=== PATIENT | male | born 1995 | race Two or more races ===

== ENCOUNTER 2025-04-29 02:45 | Emergency (ER) | payer MEDICAID, OTHER ==
[~2025-04-29] VITALS: Ht 175.3 cm; Wt 77.6 kg
[~2025-04-29 02:45] MED LIST: DIPH25CA66 PO; RIS1T PO
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
[2025-04-29] MEDS: ONDANSETRON HCL 4 MG/2 ML VIAL IV ONE (04:15)
[2025-04-29] MEDS: SODIUM CHLORIDE 0.9% 1,000 ML IV ONE (04:15)
[2025-04-29] MEDS: fentaNYL CITRATE 100 MCG/2 ML VL IV ONE (04:15)
[2025-04-29 04:30] VITALS: PULSE 72; RESP 16; O2SAT 97
[2025-04-29] MEDS: ceFAZolin 2 GM/D5W50ml 50 ML IV ONE (04:45)
[2025-04-29 04:46] LABS: Hematocrit 43.0 % (41.0-53.0); Hemoglobin 14.9 g/dL (13.5-17.5); Mean Corpuscular Hemoglobin 30.4 pg (28.0-32.0); Mean Corpuscular Volume 87.9 fL (80.0-100.0); Nucleated Red Blood Cells % 0.1 %
[2025-04-29 04:53] LABS: Alanine Aminotransferase 32 U/L (7-40); Albumin 4.7 g/dL (3.2-4.8); Alkaline Phosphatase 101 U/L (46-116); Anion Gap 11 (5-15); BUN/Creatinine Ratio 13.1 (10.0-20.0); Blood Urea Nitrogen 13 mg/dL (9-23); Calcium 9.4 mg/dL (8.7-10.4); Carbon Dioxide 24 mmol/L (20-31); Chloride 107 mmol/L (98-107); Glucose 102 mg/dL (74-106); Potassium 4.1 mmol/L (3.5-5.1); Sodium 142 mmol/L (136-145); Total Protein 7.7 g/dL (5.7-8.2)
[2025-04-29 04:54] LABS: Bilirubin, Total 0.7 mg/dL (0.2-1.0)
[2025-04-29 07:47] VITALS: BP 128/78; PULSE 73; RESP 16; TEMP 98.3; O2SAT 98
== END 2025-04-29 08:25 | disposition short-term general hospital (02) ==
LOC: ER 02:45
DX: S02.2XXB Fracture of nasal bones, initial encounter for open fracture (principal); S13.4XXA Sprain of ligaments of cervical spine, initial encounter; S20.224A Contusion of middle back wall of thorax, initial encounter; S29.012A Strain of muscle and tendon of back wall of thorax, initial encounter; S39.012A Strain of muscle, fascia and tendon of lower back, initial encounter; S80.01XA Contusion of right knee, initial encounter; S80.02XA Contusion of left knee, initial encounter; F20.9 Schizophrenia, unspecified; Y08.89XA Assault by other specified means, initial encounter; Y93.89 Activity, other specified; Y92.89 Other specified places as the place of occurrence of the external cause; Y99.8 Other external cause status
CPT/HCPCS: 36415; 70450; 70486; 72125; 72128; 72131; 73562; 80053; 85025; 96365; 96366; 96375; 99285; J0690; J2405; J3010; J7030